=== PATIENT | female | born 1975 | race Hispanic/Latino ===

== ENCOUNTER 2018-04-23 14:33 | Emergency (ER) | payer MEDICAID ==
[2018-04-23] MEDS ORDERED: Zofran 4 MG/2 ML VIAL IV ONE (15:00)
[2018-04-23] MEDS ORDERED: MORPHINE SULFATE 10 MG/ML IV ONE (15:00)
[2018-04-23] MEDS ORDERED: Sodium Chloride 0.9% 1000 ML 1,000 ML IV SCH (15:00)
--- NOTE | 2018-04-23 15:09 | ERPHSYRPT ---
- History of Present Illness Time Seen by Provider: 04/23/18 15:00 Historian: patient Exam Limitations: clinical condition Patient Subjective Stated Complaint: pt states "My back has hurt on the right side for the past two to three days and it is getting worse." Triage Nursing Assessment: Pt alert and oriented X 3, skin pwd Pt ambualtes with an upright steady gait, able to speak in clear full sentences. PT speaks mexican, understands slight enlish and her daughter is here translating. Pt stated she has had kidney stones in the past and this feels the same. Physician History: PATIENT WITH A HISTORY OF TYPE 2 DIABETES COMPLAINS OF RIGHT FLANK PAIN, SEVERE X 3 DAYS. DENIES HEMATURIA, FEVER, CHILLS, RADIATION OF PAIN AROUND TO LOWER ABDOMEN, NAUSEA, EMESIS OR DIARRHEA. Timing/Duration: day(s) Activities at Onset: none Quality: stabbing Abdominal Pain Onset Location: flank Pain Radiation: no radiation Severity of Pain-Max: moderate Severity of Pain-Current: moderate Modifying Factors: Improves With: nothing Associated Symptoms: denies symptoms Previous symptoms: same symptoms as today (HISTORY OF KIDNEY STONES) Allergies/Adverse Reactions: No Known Drug Allergies Allergy (Unverified 04/23/18 15:00) Home Medications: Insulin Aspart [NovoLOG Insulin] 16 unit SQ TID 04/23/18 [History] Insulin Glargine,Hum.rec.anlog [Lantus] 60 unit SQ HS 04/23/18 [History] Metformin HCl 500 mg PO BID 04/23/18 [History] Hx Tetanus, Diphtheria Vaccination/Date Given: No Hx Influenza Vaccination/Date Given: No Hx Pneumococcal Vaccination/Date Given: No Immunizations Up to Date: Yes - Review of Systems Constitutional: No Fever, No Chills Eyes: No Symptoms Ears, Nose, & Throat: No Symptoms Respiratory: No Symptoms, No Cough, No Dyspnea Cardiac: No Symptoms, No Chest Pain, No Edema, No Syncope Abdominal/Gastrointestinal: No Symptoms, No Abdominal Pain, No Nausea, No Vomiting, No Diarrhea Genitourinary Symptoms: No Symptoms, No Dysuria Musculoskeletal: Other (FLANK PAIN), No Back Pain, No Neck Pain Skin: No Rash Neurological: No Dizziness, No Focal Weakness, No Sensory Changes Psychological: No Symptoms Endocrine: No Symptoms All Other Systems: Reviewed and Negative - Past Medical History Pertinent Past Medical History: Yes Endocrine Medical History: Diabetes Type I - Past Surgical History Past Surgical History: No - Social History Smoking Status: Never smoker Exposure to second hand smoke: Yes Drug Use: none Patient Lives Alone: No - Female History Hx Last Menstrual Period: 04/23/2018 Hx Now: No - Nursing Vital Signs Nursing Vital Signs: Initial Vital Signs Temperature 98.3 F 04/23/18 14:49 Pulse Rate 70 04/23/18 14:49 Respiratory Rate 18 04/23/18 14:49 Blood Pressure 169/79 04/23/18 14:49 O2 Sat by Pulse Oximetry 98 04/23/18 14:49 Pain Scale Pain Intensity [] 8 Pain Intensity 0 - Physical Exam General Appearance: moderate distress Eye Exam: PERRL/EOMI, eyes nml inspection Ears, Nose, Throat Exam: normal ENT inspection, pharynx normal, moist mucous membranes Neck Exam: normal inspection, non-tender, supple, full range of motion Respiratory Exam: normal breath sounds, lungs clear, No respiratory distress Cardiovascular Exam: regular rate/rhythm, normal heart sounds Gastrointestinal/Abdomen Exam: soft, No tenderness, No mass Back Exam: normal inspection, normal range of motion, CVA tenderness (MODERATE RIGHT CVA TENDERNESS), No vertebral tenderness Extremity Exam: normal inspection, normal range of motion, pelvis stable Neurologic Exam: alert, oriented x 3, cooperative, normal mood/affect, nml cerebellar function, sensation nml, No motor deficits Skin Exam: normal color, warm, dry SpO2 Interpretation: normal SpO2: 98 Oxygen Delivery: Room Air - CT Exams Abdomen/Pelvis CT Interpretation: Tele-radiologist Report (DILATED GALLBLADDER CONTAINING NUMEROUS CHOLELITHS AND OR SLUDGE, FATTY INFILTRATED ENLARGED LIVER, NORMAL APPENDIX, KIDNEYS WITH NO OBSTRUCTING STONES OR HYDRONEPHROSIS) Ordered Tests: Active Orders 24 hr Category Date Time Status IV Insertion STAT Care 04/23/18 15:00 Active ABDOMEN AND PELVIS W/0 CONTRAS [CT] Stat Exams 04/23/18 15:02 Taken AMYLASE Stat Lab 04/23/18 15:12 Completed CBC W DIFF Stat Lab 04/23/18 15:12 Completed CMP Stat Lab 04/23/18 15:12 Completed CULTURE,URINE Stat Lab 04/23/18 15:55 Received HCG,QUALITATIVE URINE Stat Lab 04/23/18 15:55 Completed LIPASE Stat Lab 04/23/18 15:12 Completed UA W/ MICROSCOPIC Stat Lab 04/23/18 15:55 Completed Medication Summary Generic Name Dose Route Start Last Admin Trade Name Freq PRN Reason Stop Dose Admin Sodium Chloride 1,000 mls @ 250 mls/hr 04/23/18 15:00 04/23/18 15:31 Sodium Chloride 0.9% 1000 Ml IV 05/23/18 14:59 250 mls/hr .Q4H KATERINA Administration Discontinued Medications Generic Name Dose Route Start Last Admin Trade Name Freq PRN Reason Stop Dose Admin Ceftriaxone Sodium/Dextrose 1 g in 50 mls @ 100 mls/hr 04/23/18 16:52 17:03 Rocephin 1 Gm-D5w 50 Ml Bag IV 04/23/18 17:21 100 mls/hr STAT STA 100 mls/hr Administration Ceftriaxone Sodium/Dextrose Confirm 04/23/18 16:55 Rocephin 1 Gm-D5w 50 Ml Bag Administered 04/23/18 16:56 Dose 1 g in 50 mls @ ud IV .STK-MED ONE Morphine Sulfate 6 mg 04/23/18 15:00 04/23/18 15:30 Morphine Sulfate 10 Mg/Ml IV 04/23/18 15:01 6 mg STAT ONE Administration Morphine Sulfate Confirm 04/23/18 15:28 Morphine Sulfate 10 Mg/Ml Administered 04/23/18 15:29 Dose 10 mg .ROUTE .STK-MED ONE Ondansetron HCl 4 mg 04/23/18 15:00 04/23/18 15:31 Zofran 4 Mg/2 Ml Vial IV 04/23/18 15:01 4 mg STAT ONE Administration Ondansetron HCl Confirm 04/23/18 15:27 Zofran 4 Mg/2 Ml Vial Administered 04/23/18 15:28 Dose 4 mg .ROUTE .STK-MED ONE Lab/Rad Data: Laboratory Result Diagrams 04/23/18 15:12 04/23/18 15:12 Laboratory Results 04/23/18 04/23/18 04/23/18 Range/Units 15:55 15:55 15:12 WBC (4.0-10.5) K/mm3 RBC (4.1-5.4) M/mm3 Hgb (12.0-16.0) gm/dl Hct (35-47) % MCV (78-100) fl MCH (26-32) pg MCHC (32-36) g/dl RDW (11.5-14.0) % Plt Count (150-450) K/mm3 MPV (6-9.5) fl Gran % (36.0-66.0) % Eos # (Auto) (0-0.5) Absolute Lymphs (auto) (1.0-4.6) Absolute Monos (auto) (0.0-1.3) Lymphocytes % (24.0-44.0) % Monocytes % (0.0-12.0) % Eosinophils % (0.00-5.0) % Basophils % (0.0-0.4) % Absolute Granulocytes (1.4-6.9) Basophils # (0-0.4) Sodium 139 (137-145) mmol/L Potassium 3.6 (3.5-5.1) mmol/L Chloride 101 (98-107) mmol/L Carbon Dioxide 31 H (22-30) mmol/L Anion Gap 10.9 (5-15) MEQ/L BUN 14 (7-17) mg/dL Creatinine 0.46 L (0.52-1.04) mg/dL Estimated GFR > 60.0 ML/MIN Glucose 199 H (74-106) mg/dL Calcium 9.5 (8.4-10.2) mg/dL Total Bilirubin 0.70 (0.2-1.3) mg/dL AST 40 H (14-36) U/L ALT 57 H (0-35) U/L Alkaline Phosphatase 67 (38-126) U/L Serum Total Protein 7.2 (6.3-8.2) g/dL Albumin 3.9 (3.5-5.0) g/dL Amylase 53 (30-110) U/L Lipase 35 (23-300) U/L Ur Collection Type CCMS Urine Color YELLOW (YELLOW) Urine Appearance HAZY (CLEAR) Urine pH 5.0 (5-6) Ur Specific [place] 1.025 (1.005-1.025) Urine Protein TRACE (Negative) Urine Ketones NEGATIVE (NEGATIVE) Urine Blood 250 (0-5) Rod/ul Urine Nitrite NEGATIVE (NEGATIVE) Urine Bilirubin NEGATIVE (NEGATIVE) Urine Urobilinogen NORMAL (0-1) mg/dL Ur Leukocyte Esterase TRACE (NEGATIVE) Urine Microscopic RBC >100 (0-2) /HPF Urine Microscopic WBC 5-10 (0-5) /HPF Ur Epithelial Cells FEW (FEW) /HPF Urine Bacteria FEW (NEGATIVE) /HPF Urine Culture Reflexed YES (NO) Urine Glucose 50 (NEGATIVE) mg/dL Urine HCG, Qual NEGATIVE (Negative) Slides for Path Review Specimen Received 1555 04/23/18 04/23/18 Range/Units 15:12 WBC 7.8 (4.0-10.5) K/mm3 RBC 4.30 (4.1-5.4) M/mm3 Hgb 14.0 (12.0-16.0) gm/dl Hct 40.0 (35-47) % MCV 93.0 (78-100) fl MCH 32.6 H (26-32) pg MCHC 35.0 (32-36) g/dl RDW 13.0 (11.5-14.0) % Plt Count 218 (150-450) K/mm3 MPV 12.2 H (6-9.5) fl Gran % 57.5 (36.0-66.0) % Eos # (Auto) 0.18 (0-0.5) Absolute Lymphs (auto) 2.54 (1.0-4.6) Absolute Monos (auto) 0.54 (0.0-1.3) Lymphocytes % 32.7 (24.0-44.0) % Monocytes % 7.0 (0.0-12.0) % Eosinophils % 2.3 (0.00-5.0) % Basophils % 0.5 (0.0-0.4) % Absolute Granulocytes 4.46 (1.4-6.9) Basophils # 0.04 (0-0.4) Sodium (137-145) mmol/L Potassium (3.5-5.1) mmol/L Chloride (98-107) mmol/L Carbon Dioxide (22-30) mmol/L Anion Gap (5-15) MEQ/L BUN (7-17) mg/dL Creatinine (0.52-1.04) mg/dL Estimated GFR ML/MIN Glucose (74-106) mg/dL Calcium (8.4-10.2) mg/dL Total Bilirubin (0.2-1.3) mg/dL AST (14-36) U/L ALT (0-35) U/L Alkaline Phosphatase (38-126) U/L Serum Total Protein (6.3-8.2) g/dL Albumin (3.5-5.0) g/dL Amylase (30-110) U/L Lipase (23-300) U/L Ur Collection Type Urine Color (YELLOW) Urine Appearance (CLEAR) Urine pH (5-6) Ur Specific [place] (1.005-1.025) Urine Protein (Negative) Urine Ketones (NEGATIVE) Urine Blood (0-5) Rod/ul Urine Nitrite (NEGATIVE) Urine Bilirubin (NEGATIVE) Urine Urobilinogen (0-1) mg/dL Ur Leukocyte Esterase (NEGATIVE) Urine Microscopic RBC (0-2) /HPF Urine Microscopic WBC (0-5) /HPF Ur Epithelial Cells (FEW) /HPF Urine Bacteria (NEGATIVE) /HPF Urine Culture Reflexed (NO) Urine Glucose (NEGATIVE) mg/dL Urine HCG, Qual (Negative) Slides for Path Review YES Specimen Received - Progress Progress: improved Progress Note: 04/23/18 15:14 IV NORMAL SALINE 250ML/HR ZOFRAN 4MG, MORPHINE 6 MG IV Counseled pt/family regarding: lab results, diagnosis, need for follow-up, rad results - Departure Time of Disposition: 18:40 Departure Disposition: Home Clinical Impression: CHOLELITHIASIS, URINARY TRACT INFECTION Condition: Stable Critical Care Time: No Referrals: DOCTOR,NO FAMILY [Primary Care Provider] - Additional Instructions: TAKE COPY OF CT ABDOMINAL PELVIC SCAN DISC TO APPOINTMENT WITH YOUR PRIMARY CARE PROVIDER FOR EVALUATION OF YOUR GALL STONES. ANTIBIOTIC MACROBID 100MG TWICE DAILY FOR 10 DAYS FOR TREATMENT OF URINARY TRACT INFECTION. [place] 5/325 EVERY 6 HOURS NEEDED FOR PAIN. Prescriptions: Hydrocodone Bit/Acetaminophen [[place] 5-325 Tablet] 1 each PO Q6HPRN PRN #10 tablet MDD 4 PRN Reason: Pain Nitrofurantoin Macro 100 mg [Macrobid 100MG Capsule] 100 mg PO BID #20 cap
[2018-04-23] MEDS ORDERED: Zofran 4 MG/2 ML VIAL ONE (15:27)
[2018-04-23] MEDS ORDERED: MORPHINE SULFATE 10 MG/ML ONE (15:28)
[2018-04-23] MEDS ORDERED: Sodium Chloride 0.9% 1000 ML 1,000 ML ONE (15:28)
[2018-04-23 15:34] LABS: ALBUMIN 3.9 g/dL (3.5-5.0); ALKALINE PHOSPHATASE 67 U/L (38-126); AMYLASE 53 U/L (30-110); ANION GAP 10.9 MEQ/L (5-15); BLOOD UREA NITROGEN 14 mg/dL (7-17); CHLORIDE 101 mmol/L (98-107); Calcium 9.5 mg/dL (8.4-10.2); Carbon Dioxide 31 mmol/L (22-30); Creatinine 1 0.46 mg/dL (0.52-1.04); Glucose 199 mg/dL (74-106); LIPASE 35 U/L (23-300); Potassium 3.6 mmol/L (3.5-5.1); SGOT/AST 40 U/L (14-36); SGPT/ALT 57 U/L (0-35); SODIUM 139 mmol/L (137-145); Total Protein 7.2 g/dL (6.3-8.2)
[2018-04-23 15:59] LABS: BASOPHIL % 0.5 % (0.0-0.4); Basophil (Absolute #) 0.04 (0-0.4); Eosinophil % 2.3 % (0.00-5.0); Eosinophil (Absolute #) 0.18 (0-0.5); Granulocyte Absolute (ANC) 4.46 (1.4-6.9); Granulocytes % 57.5 % (36.0-66.0); Lymphocyte (Absolute #) 2.54 (1.0-4.6); Lymphocytes % 32.7 % (24.0-44.0); Mean Corpuscular Hemoglobin 32.6 pg (26-32); Mean Platelet Volume 12.2 fl (6-9.5); Monocyte (Absolute #) 0.54 (0.0-1.3); Platelet Count 218 K/mm3 (150-450); White Blood Count 7.8 K/mm3 (4.0-10.5)
[2018-04-23 16:15] LABS: Appearance HAZY (CLEAR); Leukocyte Esterase TRACE (NEGATIVE); Specific Gravity 1.025 (1.005-1.025)
[2018-04-23 16:16] LABS: Bilirubin NEGATIVE (NEGATIVE); Blood 250 Ery/ul (0-5); Glucose 50 mg/dL (NEGATIVE); Ketones NEGATIVE (NEGATIVE); Nitrite NEGATIVE (NEGATIVE); Protein,Urine Dip TRACE (Negative); Urobilinogen NORMAL mg/dL (0-1)
[2018-04-23 16:21] LABS: Bacteria FEW /HPF (NEGATIVE); Epithelial Cells FEW /HPF (FEW); RBC >100 /HPF (0-2)
[2018-04-23 16:27] LABS: Slide Review 1 YES
[2018-04-23] MEDS ORDERED: ROCEPHIN 1 Gm-D5w 50 ml Bag** 1 G/50 ML IVPB IV STA (16:52)
[2018-04-23] MEDS ORDERED: ROCEPHIN 1 Gm-D5w 50 ml Bag** 1 G/50 ML IVPB IV ONE (16:55)
[2018-04-23 17:48] VITALS: O2SAT 98
[2018-04-23 19:10] VITALS: BP 122/71; PULSE 62
--- NOTE | 2018-04-23 20:12 | XRAY ---
Indication: Right abdominal/flank pain. Multiple contiguous axial images obtained through the abdomen and pelvis without contrast using renal stone protocol. Comparison: None Lung bases demonstrates minimal bibasilar fibrosis/scarring. Heart is not enlarged. No calculus or evidence for obstructive uropathy in either system. Noncontrasted stomach and bowel loops appear nonobstructed. Normal appendix. Gallbladder distended with intraluminal gravel/sludge. Diffuse fatty liver. No free fluid/air. Remaining liver, pancreas, spleen, adrenal glands, kidneys, ureters, bladder, uterus, and aorta appear unremarkable for noncontrast exam. Osseous structures intact with moderate degenerative changes throughout the spine and old right lower rib fractures. Impression: 1. Negative renal calculus or evidence for obstructive uropathy. 2. Distended gallbladder with tiny sludge/gravel. Gallbladder sonogram may yield further information. 3. Fatty liver. Comment: Preliminary interpretation was made by C. No discrepancy. CTDI 28.13
== END 2018-04-23 19:11 | disposition home or self-care (01) ==
LOC: ED 14:33
DX: K80.20 Calculus of gallbladder without cholecystitis without obstruction (principal); N39.0 Urinary tract infection, site not specified; E10.9 Type 1 diabetes mellitus without complications; Z79.4 Long term (current) use of insulin; Z79.84 Long term (current) use of oral hypoglycemic drugs
CPT/HCPCS: 36000; 36415; 74176; 80053; 81000; 82150; 83690; 84703; 85025; 87086; 96360; 96365; 96374; 96375; 99284; J0696; J2270; J2405